=== PATIENT | female | born 1965 | race Caucasian/White ===

== ENCOUNTER 2020-03-15 10:35 | Outpatient (RCR) | payer MEDICARE, MEDICAID, SELFPAY | END 2020-09-15 15:30 | disposition home or self-care (01) | LOC: HO.WCC 10:35 | PROVIDERS: PCP Family Medicine; Visit Provider Surgery | DX: E11.622 Type 2 diabetes mellitus with other skin ulcer (principal); L89.152 Pressure ulcer of sacral region, stage 2; L89.323 Pressure ulcer of left buttock, stage 3; L89.313 Pressure ulcer of right buttock, stage 3; B37.2 Candidiasis of skin and nail; L53.9 Erythematous condition, unspecified; R60.1 Generalized edema; E03.9 Hypothyroidism, unspecified; G11.4 Hereditary spastic paraplegia; Z87.891 Personal history of nicotine dependence; Z96.89 Presence of other specified functional implants; B36.9 Superficial mycosis, unspecified | CPT/HCPCS: 11042; 99212; 99213 ==

== ENCOUNTER 2022-11-11 12:42 | Outpatient (RCR) | payer MEDICARE, MEDICAID, SELFPAY | END 2022-11-30 16:00 | disposition home or self-care (01) | LOC: HO.WCC 12:42 | PROVIDERS: PCP Family Medicine; Visit Provider Physician Assistant | DX: E11.622 Type 2 diabetes mellitus with other skin ulcer (principal); L89.324 Pressure ulcer of left buttock, stage 4; L89.314 Pressure ulcer of right buttock, stage 4; S71.002D Unspecified open wound, left hip, subsequent encounter; G11.4 Hereditary spastic paraplegia; Z86.718 Personal history of other venous thrombosis and embolism; Z87.891 Personal history of nicotine dependence | CPT/HCPCS: 11043; 11046; 87070; 87073; 87076; 87205; 99215 ==